=== PATIENT | male | born 1950 | race Caucasian/White ===

== ENCOUNTER 2021-07-29 18:54 | Emergency (ER) | payer MEDICARE, MEDICAID, SELFPAY ==
[2021-07-29 19:49] VITALS: BP_SYST 160
--- NOTE | 2021-07-29 19:57 | NUR ---
Patient triaged and placed ON AMBULANCE GURNEY. VSS and patient appears in no acute distress at this time. Accompanied by EMS, awaiting available bed, and MD notified of need for MSE.
--- NOTE | 2021-07-29 20:48 | NUR ---
PATIENT A/OX1, ALERT, CONFUSED. PATIENT AMBULATES WITH PARTIAL ASSIST. PATIENT IS LYING IN BED, RESTING CALMLY, NO C/O PAIN OR S/S OF DISTRESS. PATIENT CHEST RISE AND FALL SYMMETRICAL. PATIENT RESTING COMFORTABLY, BED IN LOW AND LOCKED POSITION, 3 BED RAILS UP.
[2021-07-29 20:49] LABS: BILIRUBIN,URINE NEGATIVE (NEGATIVE); BLOOD, URINE NEGATIVE (NEGATIVE); COLOR,URINE YELLOW (YELLOW); GLUCOSE,URINE NEGATIVE (NEGATIVE); KETONES,URINE NEGATIVE (NEGATIVE); LEUKOCYTE ESTERASE ,URINE 1+ (NEGATIVE); NITRITE, URINE NEGATIVE (NEGATIVE); PH,URINE 5.5 (5.0-8.0); PROTEIN URINE 2+ (NEGATIVE); UROBILINOGEN,URINE 0.2 (0.2-1.0)
[2021-07-29 20:54] LABS: CLARITY/URINE HAZY (CLEAR)
[2021-07-29 20:57] LABS: BACTERIA,URINE FEW /HPF (None Seen); RBC,URINE 0-3 /HPF (0-3)
[2021-07-29 20:58] LABS: MUCUS,URINE None Seen /LPF (None Seen)
[2021-07-29 21:56] LABS: HEMATOCRIT 28.4 % (36-54); HEMOGLOBIN 9.5 g/dL (14.0-18.0); LYMPHOCYTES # (AUTO) 1.4 K/uL (1.0-5.5); LYMPHOCYTES % (AUTO) 26.9 % (20.5-51.5); MEAN CORPUSCULAR HEMOGLOBIN 26 pg (27-31); MEAN CORPUSCULAR HGB CONC 33 % (32-36); MEAN CORPUSCULAR VOLUME 79 fL (79.0-98.0); MONOCYTES # (AUTO) 0.4 K/uL (0.0-1.0); MONOCYTES % (AUTO) 8.8 % (1.7-9.3); NEUTROPHILS # (AUTO) 3.3 K/uL (1.8-7.7); NEUTROPHILS % (AUTO) 64.3 % (40.0-70.0); PLATELET COUNT (AUTO) 145 K/uL (130-430); RED BLOOD CELL COUNT(AUTO) 3.59 MIL/uL (4.2-6.2); RED CELL DISTRIBUTION WIDTH 18.7 % (9.0-15.0); WHITE BLOOD COUNT (AUTO) 5.1 K/uL (4.8-10.8)
[2021-07-29 22:08] LABS: ANION GAP 8 (5-15); CALCIUM 8.9 mg/dL (8.4-11.0); CHLORIDE 106 mmol/L (98-107); CREATININE 1.32 mg/dL (0.55-1.30); GLUCOSE 164 mg/dL (70-99); POTASSIUM 4.4 mmol/L (3.5-5.1); SODIUM SERUM 135 mmol/L (136-145); UREA NITROGEN, BLOOD 28 mg/dL (8-21)
[2021-07-29 22:14] LABS: ALANINE AMINOTRANSFERASE 12 U/L (12-78); ALBUMIN 3.1 g/dL (3.4-4.8); ASPARTATE AMINOTRANSFERASE 10 U/L (10-37)
[2021-07-29 22:16] LABS: TOTAL BILIRUBIN < 0.1 mg/dL (0.0-1.0)
[2021-07-29 22:17] LABS: ACETAMINOPHEN < 1 ug/mL (1-30); ALCOHOL, BLOOD < 3 mg/dL (<10)
[2021-07-29] MEDS ORDERED: SULFAMETHOXAZOLE/TRIMETHOPR DS 1 TABLET PO ONE (22:30)
[2021-07-29] MEDS ORDERED: SULF1TAB47 PO (22:58)
--- NOTE | 2021-07-29 23:09 | NUR ---
Eileen STACK given report for transfer back [facility]. Eileen STACK verbalized understanding of report, no further questions.
--- NOTE | 2021-07-29 23:12 | NUR ---
Patient urinated on himself. Patient was cleaned and gown applied. Patient had no c/o pain or s/s of discomfort. PAtient is lying in bed with pleasant mood. Bed in low and locked position. Patient chest rise and fall symmetrical. Addendum: 07/30/21 at 0105 by [email or web address] Patient urinated on himself. Patient was cleaned and gown applied. Patient had no c/o pain or s/s of discomfort. Patient is lying in bed with pleasant mood. Patient self-turns. Bed in low and locked position. Patient chest rise and fall symmetrical.
--- NOTE | 2021-07-30 00:30 | NUR ---
Patient had no c/o pain or s/s of discomfort. Patient is lying in bed with pleasant mood. Patient self-turns. Bed in low and locked position. Patient chest rise and fall symmetrical.
[2021-07-30 02:34] VITALS: BP_SYST 121
--- NOTE | 2021-07-30 02:38 | NUR ---
Patient to be transferred to [facility]. Patient is being transferred due to higher level of care. Receiving facility has accepting physician and available space. ER physician Dr. Lopez has signed transfer form. Patient or responsible republican has agreed to transfer and signed form. Patient belongings inventoried and sent with patient. Copy of nursing notes, lab reports, EKG, Physicians Orders and X-rays sent with patient. Report called to Vitaly STACK at receiving facility, phone number [phone]. Receiving physicians are Dr. Francis Clifton, and dr. William Medical Doctor. [facility] ambulance service has been called for transfer. Report has been given to [facility]. Addendum: 07/30/21 at 0254 by [email or web address] Patient to be transferred to [facility]. Patient is being transferred due to higher level of care. Receiving facility has accepting physician and available space. ER physician Dr. Lopez has signed transfer form. Patient or responsible republican has agreed to transfer and signed form. Patient belongings inventoried and sent with patient. Copy of nursing notes, lab reports, EKG, Physicians Orders and X-rays sent with patient. Report called to Vitaly STACK at receiving facility, phone number [phone]. Vitaly STACK verbalized understanding of report, no further questions. Receiving physicians are Dr. Francis Clifton, and dr. William Medical Doctor. [facility] ambulance service has been called for transfer. Report has been given to [facility] ambulance.
== END 2021-07-30 02:38 ==
LOC: SED 18:54
DX: Z04.6 Encounter for general psychiatric examination, requested by authority (principal); I10 Essential (primary) hypertension; E11.9 Type 2 diabetes mellitus without complications; Z13.30 Encounter for screening examination for mental health and behavioral disorders, unspecified; Z20.822 Contact with and (suspected) exposure to COVID-19
CPT/HCPCS: 36415; 80053; 81000; 85025; 87081; 87086; 87426; 99284; 99285; G0480; G0481; G0482